=== PATIENT | female | born 1980 | race Caucasian/White ===

== ENCOUNTER → 2019-10-27 | Outpatient (CLI) | payer MEDICARE, BC ==
--- NOTE | 2019-10-27 15:54 | REP ---
Clinical: Cervicalgia Technique: AP and lateral views of the cervical spine. Findings: Evidence of prior fixation spanning C4 - C7. Straightening of normal lordosis is noted, but alignment is maintained. Very minimal anterior spurring at the C7-T1 level noted without associated disc space narrowing. Impression: Very minimal degenerative change at C7-T1 Electronically Signed by Angel Gonzalez MD 10/27/2019 03:45 P
== END ==
LOC: M RAD 15:09
PROVIDERS: ATTEND Student in an Organized Health Care Education/Training Program
DX: M51.35 Other intervertebral disc degeneration, thoracolumbar region (principal)